=== PATIENT | female | born 1985 | race Caucasian/White ===

== ENCOUNTER 2023-05-18 10:57 | Emergency (ER) | payer BC ==
[~2023-05-18] VITALS: Ht 170.2 cm; Wt 78.1 kg
[2023-05-18 11:57] LABS: ABO O; RH POSITIVE
[2023-05-18 12:06] LABS: BILIRUBIN, URINE NEGATIVE (negative); BLOOD/HGB, URINE TRACE-I (Negative); KETONE, URINE NEGATIVE (Negative); LEUK ESTERASE, URINE NEGATIVE (negative); NITRITE, URINE NEGATIVE (negative); PH, URINE 6.5 (5-7)
[2023-05-18 12:15] LABS: BACTERIA, URINE NONE SEEN /hpf (negative); CASTS, URINE NONE SEEN \\lpf; COLLECTION TYPE, URINE CLEAN CATCH; CRYSTALS, URINE NONE SEEN (0-1+); EPITHELIAL CELLS, URINE SQUAMOUS 1+ /lpf (0-1+); RED BLOOD CELLS, URINE 0-1 /hpf (0-5); REFLEX CULTURE, URINE No (No); WHITE BLOOD CELLS, URINE 0-1 /HPF (0-5)
[2023-05-18 13:20] VITALS: BP 108/77
== END 2023-05-18 13:20 | disposition home or self-care (01) ==
LOC: ED 10:57
PROVIDERS: Emergency Medicine
DX: O20.9 Hemorrhage in early pregnancy, unspecified (principal); Z3A.01 Less than 8 weeks gestation of pregnancy
CPT/HCPCS: 36415; 76801; 76817; 81001; 84702; 86900; 86901; 99284-25; J7030

== ENCOUNTER 2024-01-01 | Inpatient (IN) | payer BC ==
[~2024-01-01] VITALS: Ht 170.2 cm; Wt 90.7 kg
[~2024-01-01] MED LIST: CALCIUM CARBONATE 500 MG CHEW PO PRN; LACTATED RINGER'S 1,000 ML IV SCH; MAGNESIUM HYDROXIDE/AL HYDROX 30 ML CUP PO PRN; miSOPROStoL 25 MCG TAB PV SCH
--- NOTE | ~2024-01-01 | OR ---
[facility] [address] [place], [place] [address] Draft DATE OF OPERATION: 01/02/2024 SURGEON: Zoe Hassan MD RETAIL SUPPORT ASSOCIATE: Nova. PREOPERATIVE DIAGNOSIS: Arrest of descent, persistent OP. POSTOPERATIVE DIAGNOSES: 1. Arrest of descent, persistent OP. 2. Delivered. PROCEDURE: Primary section with low segment transverse uterine incision. ANESTHESIA: Epidural. ESTIMATED BLOOD LOSS: 750 mL. DRAINS: [place] catheter apparatus. INDICATIONS AND FINDINGS: The patient is a 38-year-old female, 2, para 0, SAB 1, who was admitted at 39 weeks for induction. She underwent several doses of Cytotec and then had spontaneous rupture of membranes at noon on 12/31. There was light meconium noted. Over the next 24 hours, she made slow and steady progress to complete and had received Pitocin augmentation. After reaching complete, she began pushing and pushes very good effort for over 2 hours. The baby did not descend past the mid pelvis, however. The baby was posterior and a manual rotation was done and she began pushing again. However, at that point, the baby rotated back to posterior and again there was no progress. Because of the arrest of descent and the persistent posterior, primary section was recommended. She was taken to the operating room, where she was delivered of a little girl from the LOP position via lower segment transverse uterine incision with Apgars of 8 and 9 and weight of 7 pounds. The uterus had multiple fibroids which were generally subserosal, though there was one which appeared to be intramural, possibly submucosal. PATIENT NAME: FAIZAN CRAWFORD OPERATIVE REPORT DATE OF : 85 REPORT #: [id number] PHYSICIAN: ZOE HASSAN MD PCP: FAIZAN SANTIAGO REPORT IS CONFIDENTIAL AND NOT TO BE RELEASED WITHOUT AUTHORIZATION [facility] [address] [place] [address] [place] The placenta seemed a little bit more adherent than normal, there was no accreta. The tubes and ovaries were normal. She did have some atony, which had some response to IV Pitocin as well as IM Methergine and oral Cytotec. DESCRIPTION OF PROCEDURE: The patient was prepped and draped in the supine position. A Pfannenstiel skin incision was made and carried down through the fascia. The incision was extended laterally. The inferior and superior fascial flaps were then created. The muscles were bluntly divided and the peritoneum opened bluntly and the incision extended bluntly. The Ector retractor was placed. The uterine incision was made at the upper aspect of the peritoneal reflection. The baby was delivered with the above findings and handed off to the pediatric staff in attendance. There was thick meconium on delivery. The placenta was removed manually and initially there was some inversion of the uterus, which was replaced immediately. The edges of the incision were identified and the uterus explored with a lap tape assuring no remaining fragments. The uterus was closed in two layers using 0-Monocryl, the first layer was a running locking stitch and the second was a vertical imbricating stitch. The abdomen was then copiously irrigated inspected and bleeding points controlled with cautery. The retractor was removed. The peritoneum identified and closed with a running suture of 3-0 Vicryl. The muscles were brought together with interrupted sutures of 0-Vicryl. Bleeding points on the muscles were controlled with cautery. This layer was irrigated, inspected and good hemostasis was noted. The fascia was closed from each angle to the midline with a running suture of 0-Vicryl. The subcu space was irrigated and bleeding points controlled with cautery. The deep space was closed with running suture of 3-0 Vicryl. The skin was closed with torres. Following this, the uterus was Crede'd with a moderate amount of blood seen. Because of the atony and the bleeding, it was felt that the was indicated. The inner loop was inserted into the uterus and the balloon inflated outside the cervix. It was attached to suction. All sponge and needle counts were correct. She tolerated the procedure well and was taken to the recovery room in good condition. MD COLT BarahonaW/MODL /[id number] PATIENT NAME: FAIZAN CRAWFORD OPERATIVE REPORT DATE OF : 85 REPORT #: [id number] PHYSICIAN: ZOE HASSAN MD PCP: FAIZAN SANTIAGO REPORT IS CONFIDENTIAL AND NOT TO BE RELEASED WITHOUT AUTHORIZATION [address] [address] [place] Copies: ~ PATIENT NAME: FAIZAN CRAWFORD OPERATIVE REPORT DATE OF : 85 REPORT #: [id number] PHYSICIAN: ZOE HASSAN MD PCP: FAIZAN SANTIAGO REPORT IS CONFIDENTIAL AND NOT TO BE RELEASED WITHOUT AUTHORIZATION
[2024-01-01] MEDS ORDERED: OXYTOCIN/DEXTROSE 5% 20 UNITS/100 ML BAG IV SCH (00:15)
[2024-01-01 00:43] LABS: HEMOGLOBIN 10.9 g/dL (12.0-18.0); MCH 28.3 (27-36); MCHC 32.2 g/dl (30-36); MCV 87.9 fl (81-99); RBC 3.87 M/ul (4.3-5.7); RDW 27.9 (10.5-15.0)
[2024-01-01 00:47] LABS: AMPHETAMINES, URINE NEGATIVE (NEGATIVE); BARBITURATES, URINE NEGATIVE (NEGATIVE); BENZODIAZEPINE, URINE NEGATIVE (NEGATIVE); BUPRENORPHINE, URINE NEGATIVE (NEGATIVE); CANNABINOID, URINE NEGATIVE (NEGATIVE); COCAINE, URINE NEGATIVE (NEGATIVE); ECSTASY, URINE NEGATIVE (NEGATIVE); FENTANYL, URINE NEGATIVE (NEGATIVE); METHADONE, URINE NEGATIVE (NEGATIVE); OPIATES, URINE NEGATIVE (NEGATIVE); OXYCODONE, URINE NEGATIVE (NEGATIVE); PHENCYCLIDINE, URINE NEGATIVE (NEGATIVE)
[2024-01-01 01:02] VITALS: BP 123/70
[2024-01-01 01:19] LABS: ABO O; ANTIBODY SCREEN NEGATIVE; RH POSITIVE
[2024-01-01] MEDS ORDERED: fentaNYL citrate 100 MCG/2 ML VIAL ONE (12:23)
[2024-01-01] MEDS ORDERED: ROPIVACAINE 0.2% 200 ML BAG ONE (12:23)
[2024-01-01] MEDS ORDERED: LACTATED RINGER'S 2,000 ML IV ONE (13:00)
[2024-01-01] MEDS ORDERED: LACTATED RINGER'S 500 ML IV PRN (13:00)
[2024-01-01] MEDS ORDERED: ePHEDrine sulfate 5 MG/ML SYRINGE IV PRN (13:00)
[2024-01-01] MEDS ORDERED: ROPIVACAINE 0.2% 200 ML BAG EPIDURAL SCH (13:00)
[2024-01-01] MEDS ORDERED: OXYTOCIN/0.9 % SODIUM CHLORIDE 500 ML IV SCH (17:45)
--- NOTE | 2024-01-01 17:47 | PR ---
[facility] [address] [facility] [place], [place] [address] Signed Progress Notes IP Datetime Report Generated by CPN: 01/01/2024 17:47 PROGRESS NOTES: [id number] Impression: Reassuring Heart Rate Procedures: Intrauterine Pressure Catheter; Sterile Vag Exam Plan: Augmentation VITAL SIGNS: [id number] Vital Signs: Reviewed; Within Normal Limits EXAM: [id number] Dilatation: 2.0 Effacement: 80 Station: -2 Contractions: q 3 to 6 min MEMBRANES: [id number] Amniotic Fluid Color: Meconium, Light Comments: status overall reassuring with accels/variability. In the past has had occ late decels but nothing consistent. IUPC placed and will begin low dose pit for poor contraction pattern. Discussed with pt and she concurs. FETUS A: [id number] FHR Baseline: 140 Variability: Moderate 6-25bpm Accelerations: 15X15 Decelerations: None FHR Category: Category I Presentation: Vertex FETUS B: [id number] Signing Physician: Leslye Hassan MD Copies: ~ *Electronically Signed* 01/01/24 1747 LESLYE HASSAN MD PATIENT NAME: FAIZAN CRAWFORD PROGRESS NOTE DATE OF : 85 PHYSICIAN: LESLYE HASSAN MD RPT #: [id number] REPORT IS CONFIDENTIAL AND NOT TO BE RELEASED WITHOUT AUTHORIZATION
[2024-01-01] MEDS ORDERED: ACETAMINOPHEN 325 MG TAB PO ONE (18:30)
[2024-01-01] MEDS ORDERED: ondansetron HCL 4 MG/2 ML VIAL IV ONE (18:30)
--- NOTE | 2024-01-01 21:00 | PR ---
[facility] [address] [facility] [place], [place] [address] Signed Progress Notes IP Datetime Report Generated by CPJania: 01/01/2024 21:00 PROGRESS NOTES: [id number] Impression: Normal Progression of Labor; Reassuring Heart Rate Procedures: Sterile Vag Exam Plan: Continue Present Management VITAL SIGNS: [id number] Vital Signs: Reviewed; Within Normal Limits EXAM: [id number] Dilatation: 3.0 Effacement: 80 Station: -2 Contractions: q 2 to 3 min MEMBRANES: [id number] Amniotic Fluid Color: Meconium, Light Comments: Comfortable. Some change in her cervix. Suspect her prior LEEP is contributing to the slow dilation. Will continue w/ pitocin and position changes. FETUS A: [id number] FHR Baseline: 140 Variability: Moderate 6-25bpm Accelerations: 15X15 Decelerations: None FHR Category: Category I Presentation: Vertex FETUS B: [id number] Signing Physician: Leslye Hassan MD Copies: ~ *Electronically Signed* 01/01/242099 LESLYE HASSAN MD PATIENT NAME: FAIZAN CRAWFORD PROGRESS NOTE DATE OF : 85 PHYSICIAN: LESLYE HASSAN MD RPT #: [id number] REPORT IS CONFIDENTIAL AND NOT TO BE RELEASED WITHOUT AUTHORIZATION
[2024-01-02] MEDS ORDERED: dexmedeTOMIDine HCl 200 MCG/2 ML VIAL ONE ×2 (05:36→16:08)
[2024-01-02] MEDS ORDERED: SODIUM CHLORIDE 0.9% 20 ML IV ONE ×3 (05:36→15:34)
[2024-01-02] MEDS ORDERED: Ropivacaine HCl 0.5% 30 ML VIAL ONE ×2 (14:13→15:34)
[2024-01-02] MEDS ORDERED: fentaNYL citrate 100 MCG/2 ML VIAL ONE ×2 (14:13→15:12)
[2024-01-02] MEDS ORDERED: LIDOCAINE 2% W/ EPI 1:100,000 20 ML VIAL ONE (14:29)
[2024-01-02] MEDS ORDERED: OXYTOCIN 10 UNITS/ML VIAL ONE ×3 (15:12→16:15)
[2024-01-02] MEDS ORDERED: ondansetron HCL 4 MG/2 ML VIAL ONE ×2 (15:12)
[2024-01-02] MEDS ORDERED: CEFAZOLIN SODIUM 2 GM/20 ML SYR IV ONE (15:15)
[2024-01-02] MEDS ORDERED: AZITHROMYCIN 500 MG in DEXTROSE 5% 250 ML IV ONE (15:15)
[2024-01-02] MEDS ORDERED: AZITHROMYCIN/DEXTROSE 500 MG/250 ML BAG ONE (15:16)
[2024-01-02] MEDS ORDERED: CEFAZOLIN SODIUM 2 GM/20 ML SYR ONE (15:17)
--- NOTE | 2024-01-02 15:21 | PR ---
[facility] [address] [place], [place] [address] Signed Progress Notes IP Datetime Report Generated by CPN: 01/02/2024 15:21 PROGRESS NOTES: [id number] Impression: Arrest of Dilatation/Descent Procedures: Sterile Vag Exam Plan: Deliver- Section Informed Consent Obtain: Section Delivery; Risks, Benefits and Alternatives Discussed VITAL SIGNS: [id number] Vital Signs: Reviewed; Within Normal Limits EXAM: [id number] Dilatation: 3.0 Effacement: 100 Station: 0 Contractions: q 2 to 3 min MEMBRANES: [id number] Amniotic Fluid Color: Meconium, Light Comments: She has been pushing for over 3 hrs. Manual rotation done by Dr. Nova and began pushing again. However, no descent was noted after she began pushing again. Discussed with patient and I feel section is indicated. Will proceed now. The risks of surgery including, but not limited to infection and bleeding. She had no questions. FETUS A: [id number] FHR Baseline: 140 Variability: Minimal - >Undetectable to <=5bpm Accelerations: 15X15 Decelerations: Prolonged FHR Category: Category II Presentation: Vertex FETUS B: [id number] Signing Physician: Lesyle Hassan MD Copies: ~ *Electronically Signed* 01/02/24 1521 LESLYE HASSAN MD PATIENT NAME: FAIZAN CRAWFORD PROGRESS NOTE DATE OF : 85 PHYSICIAN: LESLYE HASSAN MD RPT #: [id number] REPORT IS CONFIDENTIAL AND NOT TO BE RELEASED WITHOUT AUTHORIZATION
[2024-01-02] MEDS ORDERED: AZITHROMYCIN/DEXTROSE 500 MG/250 ML BAG IV ONE (15:30)
--- NOTE | 2024-01-02 15:30 | NUR ---
CALLED TO STANDBY IN ROOM , WAS ORDERED SETUP EVERYTHING AT [facility] FOR DELIVERY ON STANDBY , RISK FACTORS WERE THICK MEC AND FAILURE TO PROGRESS PER STAFF REPORT
[2024-01-02] MEDS ORDERED: DEXAMETHASONE SOD PHOS 4 MG/ML VIAL ONE ×3 (15:34→16:01)
[2024-01-02] MEDS ORDERED: TRANEXAMIC ACID 1,000 MG/10 ML AMP ONE (15:44)
[2024-01-02] MEDS ORDERED: PHENYLEPHRINE HCL 10 MG/ML VIAL ONE (15:51)
[2024-01-02] MEDS ORDERED: PROCHLORPERAZINE EDISYLATE 10 MG/2 ML VIAL IV PRN ×2 (16:00→16:30)
[2024-01-02] MEDS ORDERED: IBLOOD GLUCOSE TEST STRIP 1 EA TEST VI PRN (16:00)
[2024-01-02] MEDS ORDERED: NALOXONE HCL 0.4 MG SYR IV PRN (16:00)
[2024-01-02] MEDS ORDERED: METOCLOPRAMIDE HCL 10 MG/2 ML SDV IV PRN ×2 (16:00→16:30)
[2024-01-02] MEDS ORDERED: droPERidol 5 MG/2 ML VIAL IV PRN (16:00)
[2024-01-02] MEDS ORDERED: HYDROmorphone HCL 1 MG/ML SYR IV PRN (16:00)
[2024-01-02] MEDS ORDERED: ondansetron HCL 4 MG/2 ML VIAL IV PRN ×2 (16:00→16:30)
[2024-01-02] MEDS ORDERED: fentaNYL citrate 50 MCG/ML SDV IV PRN (16:00)
[2024-01-02] MEDS ORDERED: METOCLOPRAMIDE HCL 10 MG/2 ML SDV ONE (16:01)
[2024-01-02] MEDS ORDERED: MEPERIDINE HCL 25 MG/1 ML VIAL ONE (16:12)
[2024-01-02] MEDS ORDERED: PROMETHAZINE HCL 25 MG TAB PO PRN (16:30)
[2024-01-02] MEDS ORDERED: LIDOCAINE 2% VISCOUS 6 ML SYR TOP ONE (16:30)
[2024-01-02] MEDS ORDERED: bisacodyL 10 MG SUPP PR PRN (16:30)
[2024-01-02] MEDS ORDERED: OXYCODONE HCL 5 MG TAB PO PRN (16:30)
[2024-01-02] MEDS ORDERED: PROMETHAZINE HCL 25 MG SUPP PR PRN (16:30)
[2024-01-02] MEDS ORDERED: OXYTOCIN/0.9 % SODIUM CHLORIDE 500 ML IV SCH (16:30)
[2024-01-02] MEDS ORDERED: LACTATED RINGER'S 1,000 ML IV SCH (16:34)
[2024-01-02 17:46] VITALS: BP 114/55
--- NOTE | 2024-01-02 17:52 | NUR ---
01/02/24 1752 Keke Millan 1641- PT TAKEN BACK TO ROOM 102 IN [facility], DROWSY BUT WAKES EASILY TO VERBAL STIMULI. BREATHING EVEN AND NON LABORED. LR WITH 20 UNITS OF PITOCIN INFUSING TO 18 G LFA IV. SIXTO IN PLACE AND PLACED TO 80mmHg CONTINUOUS WALL SUCTION, DRESSING IN PLACE TO LOW ABD CDI. PT DENIES PAIN AND NAUSEA. CONCENTRATED YELLOW URINE DRAINING IN GOLDMAN CATHETER. ALL MONITORS IN PLACE, NO SIGNS OF DISTRESS. 1700- PT CONTINUES TO REST AT THIS TIME. NO BLEEDING NOTED ON FUNDAL CHECKS. LR WITH 20 UNITS OF PITOCIN CONTINUES TO INFUSE. FAMILY AT BEDSIDE. 5- REPORT TO DONNA FERNANDEZ AT BEDSIDE. BED PLUGGED IN, CALL LIGHT IN REACH. PT RESTING.
[2024-01-02] MEDS ORDERED: KETOROLAC TROMETHAMINE 30 MG/ML VIAL IV SCH (20:00)
[2024-01-02] MEDS ORDERED: SENNOSIDES/DOCUSATE 1 EA TAB PO SCH (21:00)
[2024-01-02] MEDS ORDERED: SIMETHICONE 125 MG TABLET CHEWABLE PO SCH (21:00)
[2024-01-02] MEDS ORDERED: ACETAMINOPHEN 500 MG TAB PO SCH (22:00)
[2024-01-03 05:25] LABS: HEMATOCRIT 28.1 % (35.0-50.0); HEMOGLOBIN 9.1 g/dL (12.0-18.0); MCH 28.7 (27-36); MCHC 32.3 g/dl (30-36); MCV 88.9 fl (81-99); RBC 3.16 M/ul (4.3-5.7); RDW 27.5 (10.5-15.0)
--- NOTE | 2024-01-03 08:48 | PR ---
[facility] [address] [place], [place] [address] Signed PP Progress Notes Datetime Report Generated by CPJania: 01/03/2024 08:48 SUBJECTIVE: [id number] Pain: Within Normal Limits Nausea/Vomiting: Denies Flatus: Yes Bowel Movement: No Vital Signs: [id number] Cardiovascular: Not Done Respiratory: Not Done Abdomen/Uterus: Normal Lochia: Normal Vulva/Perineum: Not Done Breasts: Not Done CVA Tenderness: Not Done Extremities: Normal Incision: Normal Progress: Abnormal IMPRESSION/PLAN/PROCEDURES: [id number] Progress Notes: S: 38 yo s/p primary LTCS for failure to descend. Denies KOENIG, CP, SOB, F/C, N/V, RUQ pain, changes in vision, vaginal discharge. Tolerating regular diet, ambulaing, voiding per niño, pain controlled. O: AFVSS Abd: Soft, appropriately TTP. Moderate distension. Incision C/D/I without erythema or drainage. Fundus firm, 1 finger below umbilicus. Musc: SCHULTZ. 1+ edema bilaterally. No clubbing or cyanosis. A/P: 38 yo s/p primary LTCS for failure to descend. POD #1. Doing well. Will work on latching/ today. Requesting Toradol PRN after routine doses as she has had a gastric sleeve and is unable to take oral NSAIDs. Likely discharge home tomorrow AM. Signing Physician: Catarina Jean-Baptiste MD Copies: ~ *Electronically Signed* 01/03/24 0848 CATARINA JEAN-BAPTISTE MD PATIENT NAME: TYFAIZANSOFIA MARTÍNEZ PROGRESS NOTE DATE OF : 85 PHYSICIAN: CATARINA JEAN-BAPTISTE MD RPT #: [id number] REPORT IS CONFIDENTIAL AND NOT TO BE RELEASED WITHOUT AUTHORIZATION
--- NOTE | 2024-01-04 12:44 | PR ---
[facility] [address] [place], [place] [address] Signed PP Progress Notes Datetime Report Generated by CPN: 01/04/2024 12:44 SUBJECTIVE: [id number] Pain: Within Normal Limits Nausea/Vomiting: Denies Flatus: Yes Bowel Movement: Yes Vital Signs: [id number] Vital Signs: Reviewed; Within Normal Limits Cardiovascular: Not Done Respiratory: Not Done Abdomen/Uterus: Normal Lochia: Normal Vulva/Perineum: Not Done Breasts: Not Done CVA Tenderness: Not Done Extremities: Normal Incision: Normal Progress: Normal IMPRESSION/PLAN/PROCEDURES: [id number] Impression: Normal Progression Plan: Discharge Procedures: None Progress Notes: S: 38 yo s/p primary LTCS for failure to descend. POD #2. Doing well. Denies KOENIG, CP, SOB, F/C, N/V, RUQ pain, changes in vision, vaginal discharge. Tolerating regular diet, ambulating, voiding on own, pain controlled. O: AFVSS Abd: Soft. Non-distended. Appropriately TTP. Incision C/D/I. Piercy in place. No erythema or drainage. Musc: SCHULTZ. No noted changes. Signing Physician: Noemi Jean-Baptiste MD Copies: ~ *Electronically Signed* 01/04/24 1244 NOEMI JEAN-BAPTISTE MD PATIENT NAME: FAIZAN CRAWFORD PROGRESS NOTE DATE OF : 85 PHYSICIAN: NOEMI JEAN-BAPTISTE MD RPT #: [id number] REPORT IS CONFIDENTIAL AND NOT TO BE RELEASED WITHOUT AUTHORIZATION
== END 2024-01-04 12:10 | disposition home or self-care (01) | DRG 788 ==
LOC: FBC
PROVIDERS: ADMIT Obstetrics & Gynecology; ATTEND Obstetrics & Gynecology
PROC: 10D00Z1 Extraction of Products of Conception, Low, Open Approach (ICD-10-PCS; principal; 2024-01-02 15:30)
DX: O62.1 Secondary uterine inertia (principal); Z3A.39 39 weeks gestation of pregnancy; Z37.0 Single live birth; O76 Abnormality in fetal heart rate and rhythm complicating labor and delivery; O77.0 Labor and delivery complicated by meconium in amniotic fluid; O63.1 Prolonged second stage (of labor)
CPT/HCPCS: 01961; 36415; 76942; 80307; 82803; 85027; 85060; 86850; 86900; 86901; A9270; J1100; J1885; J2175; J2371; J2405; J2590; J2765; J2795; J3010; J7121